=== PATIENT | male | born 1970 | race Hispanic/Latino ===

== ENCOUNTER 2018-11-28 04:54 | Emergency (ER) | payer SELFPAY ==
--- NOTE | 2018-11-28 06:35 | Emergency Department Report ---
HPI - General Chief Complaint: Animal Bite Time Seen by Provider: 11/28/18 06:01 - HPI HPI: 48-year-old male presents to the emergency Department via PD for an evaluation and medical clearance to go to detention. The patient says that he was tackled and brought down by police officers and then says he was bitten by the police canine. He has some small lacerations and abrasions to the right forearm and just above the right ankle. He complains of some neck pain, right shoulder pain, pain to the right forearm, pain with movement of the fourth and fifth fingers of the right hand, as well as some pain to the right lower leg. He says that he last had a tetanus vaccination about 3 years prior. The patient is being arrested for some alleged illicit drug use including crack cocaine and methamphetamines. ED Past Medical Hx - Past Medical History Additional medical history: heart murmur - Surgical History Additional Surgical History: facial surgery - Social History Smoking Status: Current Every Day Smoker Substance Use Type: Alcohol, Methamphetamines - Medications Home Medications: Home Medications Medication Instructions Recorded Confirmed Last Taken Type Sulfamethoxazole/Trimethoprim 1 each PO BID #14 tablet 11/28/18 Unknown Rx [Bactrim DS TAB] ED Review of Systems ROS: Stated complaint: DOG BITE TO ARM, CHEST PAIN Other details as noted in HPI Comment: All other systems reviewed and negative Constitutional: denies: chills, fever Eyes: denies: eye pain, vision change ENT: denies: ear pain, throat pain Respiratory: denies: cough, shortness of breath Cardiovascular: denies: chest pain, palpitations Gastrointestinal: denies: abdominal pain, vomiting Genitourinary: denies: dysuria, discharge Musculoskeletal: arthralgia, myalgia. denies: joint swelling Skin: other (laceration/abrasions). denies: rash Neurological: denies: numbness, paresthesias Physical Exam - Physical Exam Vital Signs: Vital Signs 11/28/18 11/28/18 05:06 05:08 Temperature 97.7 F Pulse Rate 81 Respiratory 16 16 Rate Blood Pressure 139/89 [Left] O2 Sat by Pulse 96 96 Oximetry Physical Exam: GENERAL: The patient is well-developed well-nourished. HENT: Normocephalic. Atraumatic. Patient has moist mucous membranes. EYES: Extraocular motions are intact. Pupils equal reactive to light bilaterally. NECK: Supple. Trachea is midline. CHEST/LUNGS: Clear to auscultation. There is no respiratory distress noted. HEART/CARDIOVASCULAR: Regular. There is no tachycardia. There is no murmur. ABDOMEN: Abdomen is soft, nontender. Patient has normal bowel sounds. There is no abdominal distention. SKIN: Patient has a few small superficial lacerations that are less than 1 cm, and multiple abrasions, to the right forearm. Patient has multiple abrasions to the right lower extremity towards the distal one half of his duenas and calf. NEURO: The patient is awake, alert, and oriented. The patient is cooperative. The patient has no focal neurologic deficits. The patient has normal speech. MUSCULOSKELETAL: There is some tenderness to palpation of the right forearm, right shoulder, and right tib-fib. Decreased range of motion of the right upper extremity secondary to pain at the shoulder. Radial pulses +2 over 4 and capillary refill less than 2 seconds to the affected right upper extremity. The patient was seen moving all five finger of the affected right hand. ED Course Vital Signs 11/28/18 11/28/18 05:06 05:08 Temperature 97.7 F Pulse Rate 81 Respiratory 16 16 Rate Blood Pressure 139/89 [Left] O2 Sat by Pulse 96 96 Oximetry ED Medical Decision Making - Lab Data Result diagrams: 11/28/18 07:45 11/28/18 07:45 - Radiology Data Radiology results: report reviewed, image reviewed interpreted by me: X-ray of the right shoulder, right forearm, and right tib-fib do not show any fractures, dislocations or any acute processes. CT HEAD WITHOUT CONTRAST: HISTORY: Trauma. TECHNIQUE: Sequential 2.5mm CT images. COMPARISON: none. FINDINGS: Cerebral Parenchyma: Within normal limits. Cerebellum: Within normal limits. Brainstem: Within normal limits. Ventricles: Normal. Sella: Normal. Extra-axial spaces: Normal. Basal Cisterns: Normal. Intracranial Hemorrhage: None. Midline Shift: None. Calvarium: Normal. Sinuses: Normal. Mastoid Air Cells: Normal. Visualized Orbits: Chronic right medial orbital wall fracture is noted. No acute fracture. IMPRESSION: No acute intracranial process is identified. Transcribed By: TTR Dictated By: JU VALDEZ JR, MD Electronically Authenticated By: JU VALDEZ JR, MD Signed Date/Time: 11/28/18802 CT SCAN OF THE CERVICAL SPINE: HISTORY: Trauma. TECHNIQUE: Contiguous 1.25 mm axial images of the cervical spine were obtained. Sagittal and coronal reformatted images. FINDINGS: There is normal alignment of the cervical spine. The body, pedicles and posterior ligaments are intact. No evidence of fracture or subluxation is seen. The prevertebral soft tissues appear normal. Mild posterior bulging discs are suspected at C3-4 and C4-5. Moderate to severe degenerative disc narrowing and circumferential spurring is identified at C6-7. A moderate to large posterior bulging disc is suspected at this level. Mild facet arthropathy is identified in the lower cervical spine. IMPRESSION: No evidence for acute injury. Cervical spondylosis as described. C6-7 appears to be the most affected level. Transcribed By: TTR Dictated By: JU VALDEZ JR, MD Electronically Authenticated By: JU VALDEZ JR, MD Signed Date/Time: 11/28/18805 - Medical Decision Making This patient presents to the emergency department for evaluation of a headache, neck pain, right shoulder pain, right forearm pain and right duenas pain, along with some abrasions and very small lacerations, after he was tackled by the police and attacked by the police canine. Patient says he is up-to-date with vaccinations. All of the abrasions and lacerations were cleaned and there do not appear to be any signs or symptoms of infection or foreign body at this time. The lacerations are superficial and very small and given that it is a canine bite, I do not feel that sutures are necessary as we do not want close approximation in case there is development of infection. The patient was placed on antibiotics and given a dose of IV vancomycin. He had a CT scan of the head and cervical spine done that did not show any fractures, subluxations, bleed, shift, mass, ischemia, or any other acute process. X-rays were done of the right shoulder, right forearm and right tib-fib that also did not show any fracture, dislocations or any acute process. His vital signs were stable throughout his ED course. Patient appears medically cleared for incarceration. He was placed in a right upper extremity sling. He was given a prescription for antibiotic medication. He was given referrals for primary care and orthopedics to utilize when he is able to do so. He was instructed to return to the emergency Department with any worsening of symptoms, signs or symptoms of infection, or if any acute distress. Critical Care Time: No Critical care attestation.: If time is entered above; I have spent that time in minutes in the direct care of this critically ill patient, excluding procedure time. ED Disposition Clinical Impression: Medical clearance for incarceration, Abrasions of multiple sites, Musculoske letal pain Dog bite Qualifiers: Encounter type: initial encounter Qualified Code(s): W54.0XXA - Bitten by dog, initial encounter Right shoulder pain Qualifiers: Chronicity: acute Qualified Code(s): M25.511 - Pain in right shoulder Disposition: DC- TO HOME OR SELFCARE Is pt being admited?: No Condition: Stable Instructions: Animal Bite (ED), Laceration (ED), Acute Wound Care (ED), Abrasion (ED), Arthralgia (ED) Additional Instructions: Please follow up with a primary care physician once you are able to do so. I'm also giving him a referral for a local orthopedist, Dr. Segovia, to follow-up regarding your right shoulder pain and any other musculoskeletal or joint pains you are having. Return to the emergency Department with any worsening of your symptoms or any acute distress. The abrasions, wounds, small superficial lacerations should be cleaned with soap and water and then be kept dry. Please monitor for signs/symptoms of infection such as increased pain, surrounding redness, swelling, discharge of pus, surrounding redness. Take the antibiotics as prescribed. Prescriptions: Sulfamethoxazole/Trimethoprim [Bactrim DS TAB] 1 each PO BID #14 tablet Referrals: RUSSELL SEGOVIA MD [Staff Physician] - [facility] [Outside] - [facility] Time of Disposition: 09:17
[2018-11-28] MEDS ORDERED: VANCOMYCIN/NS 1 GM/250 ML 1 GM/250 ML BAG IV ONE (06:43)
--- NOTE | 2018-11-28 07:51 | XRay Report ---
PROCEDURE: XR TIBIA FIBULA 2V RT TECHNIQUE: AP and lateral views right tib-fib HISTORY: Trauma COMPARISONS: None FINDINGS: Intact right tibia and fibula with anatomic alignment. Joint spaces are grossly unremarkable. IMPRESSION: No fracture in the right tibia or fibula. This document is electronically signed by Ryne Muhammad MD., November 28 2018 07:48:54 AM ET
--- NOTE | 2018-11-28 08:01 | XRay Report ---
PROCEDURE: XR FOREARM RT TECHNIQUE: AP and lateral views right forearm HISTORY: Trauma COMPARISONS: None FINDINGS: Subcutaneous emphysema in the proximal right forearm. No fracture or gross malalignment. Mild right e lbow and wrist osteoarthrosis. A 7 mm fine linear radiodensity is present within the soft tissues rad ial and volar to the distal humerus. IMPRESSION: Right proximal forearm soft tissue injury without acute fracture identified. A 7 mm fine linear radio density in the soft tissues adjacent to the distal right humerus could be a foreign body. Clinical co rrelation is requested. Consider targeted ultrasound as warranted. This document is electronically signed by Ryne Muhammad MD., November 28 2018 07:59:51 AM ET
[2018-11-28 08:03] LABS: Basophils # (Auto) 0.1 K/mm3 (0.0-0.1); Basophils % (Auto) 0.5 % (0.0-1.8); Eosinophils # (Auto) 0.4 K/mm3 (0.0-0.4); Eosinophils % (Auto) 2.7 % (0.0-4.3); Hematocrit 43.1 % (35.5-45.6); Hemoglobin 14.5 gm/dl (11.8-15.2); Lymphocytes # (Auto) 2.8 K/mm3 (1.2-5.4); Lymphocytes % (Auto) 19.3 % (13.4-35.0); Mean Corpuscular HGB Conc 34 % (32-34); Mean Corpuscular Volume 87 fl (84-94); Monocytes # (Auto) 1.5 K/mm3 (0.0-0.8); Monocytes % (Auto) 10.6 % (0.0-7.3); Red Blood Count 4.97 M/mm3 (3.65-5.03); Red Cell Distribution Width 14.2 % (13.2-15.2)
--- NOTE | 2018-11-28 08:03 | XRay Report ---
PROCEDURE: XR SHOULDER 2+V RT TECHNIQUE: 3 views right shoulder HISTORY: Trauma COMPARISONS: None FINDINGS: Intact right glenohumeral joint. Moderate acromioclavicular and glenohumeral osteoarthrosis. No displ aced fracture identified. Acromioclavicular and coracoclavicular intervals are within normal limits. Incomplete evaluation of the adjacent right lung is unremarkable. IMPRESSION: No acute right shoulder finding. This document is electronically signed by Ryne Muhammad MD., November 28 2018 08:00:55 AM ET
--- NOTE | 2018-11-28 08:08 | Cat Scan Report ---
CT HEAD WITHOUT CONTRAST: HISTORY: Trauma. TECHNIQUE: Sequential 2.5mm CT images. COMPARISON: none. FINDINGS: Cerebral Parenchyma: Within normal limits. Cerebellum: Within normal limits. Brainstem: Within normal limits. Ventricles: Normal. Sella: Normal. Extra-axial spaces: Normal. Basal Cisterns: Normal. Intracranial Hemorrhage: None. Midline Shift: None. Calvarium: Normal. Sinuses: Normal. Mastoid Air Cells: Normal. Visualized Orbits: Chronic right medial orbital wall fracture is noted. No acute fracture. IMPRESSION: No acute intracranial process is identified.
--- NOTE | 2018-11-28 08:11 | Cat Scan Report ---
CT SCAN OF THE CERVICAL SPINE: HISTORY: Trauma. TECHNIQUE: Contiguous 1.25 mm axial images of the cervical spine were obtained. Sagittal and coronal reformatted images. FINDINGS: There is normal alignment of the cervical spine. The body, pedicles and posterior ligaments are intact. No evidence of fracture or subluxation is seen. The prevertebral soft tissues appear normal. Mild posterior bulging discs are suspected at C3-4 and C4-5. Moderate to severe degenerative disc narrowing and circumferential spurring is identified at C6-7. A moderate to large posterior bulging disc is suspected at this level. Mild facet arthropathy is identified in the lower cervical spine. IMPRESSION: No evidence for acute injury. Cervical spondylosis as described. C6-7 appears to be the most affected level.
[2018-11-28 08:23] LABS: BUN/Creatinine Ratio 13; Blood Urea Nitrogen 16 mg/dL (9-20); Calcium 8.8 mg/dL (8.4-10.2); Hemolysis Index 11
[2018-11-28] MEDS ORDERED: TORADOL IV ONE (08:33)
[2018-11-28 09:30] LABS: Platelet Count 260 K/mm3 (140-440)
[2018-11-28 10:05] VITALS: BP 122/74
== END 2018-11-28 10:26 | disposition home or self-care (01) ==
LOC: ED 04:54
DX: S50.811A Abrasion of right forearm, initial encounter (principal); S90.511A Abrasion, right ankle, initial encounter; Z88.6 Allergy status to analgesic agent; Z88.0 Allergy status to penicillin; W54.0XXA Bitten by dog, initial encounter; Y93.89 Activity, other specified; Y92.89 Other specified places as the place of occurrence of the external cause; Y99.8 Other external cause status
CPT/HCPCS: 36415; 70450; 72125; 73030; 73090; 73590; 80048; 82550; 85025; 96365; 96375; 99285; G0480; J1885; J3370; 80320